=== PATIENT | male | born 1985 | race Asian ===

== ENCOUNTER 2020-03-01 08:42 | Emergency (ER) | payer SELFPAY ==
[~2020-03-01] VITALS: Ht 167.6 cm; Wt 81.7 kg
== END 2020-03-01 09:35 | disposition home or self-care (01) ==
LOC: ER 08:42
DX: F41.9 Anxiety disorder, unspecified (principal); F17.210 Nicotine dependence, cigarettes, uncomplicated
CPT/HCPCS: 93005; 93010; 99284-25